=== PATIENT | male | born 1940 | race Caucasian/White ===

== ENCOUNTER 2020-10-16 14:01 | Inpatient (IN) | payer MEDICARE, BC ==
[2020-10-16] MEDS ORDERED: Iopamidol-370 76% 500 ML 1 ML ONE (14:06)
[2020-10-16] MEDS ORDERED: Piperacillin/Tazobactam 4.5 GM VIAL ONE (14:38)
[2020-10-16] MEDS ORDERED: Vancomycin 1 GM/200 ML BAG ONE (14:38)
--- NOTE | 2020-10-16 14:46 | RAD ---
XR Chest 1 View Portable HISTORY: Altered mental status COMPARISON: 10/03/2020 FINDINGS: Changes of median sternotomy are again seen. The aorta is tortuous. There is stable promine nce of the heart size. Calcified opacity in the right lower lung is again noted. Right-sided rib fractures are again seen . There is a patchy opacity in the right midlung. No pneumothoraces or large effusions are identified.
[2020-10-16 14:53] LABS: #Lymphocytes 0.5 thou/uL (1.20-3.40); #Monocytes 0.4 thou/uL (0.11-0.59); #Neutrophils 7.4 thou/uL (1.40-6.50); %Eosinophils 0.3 % (0.0-10.0); %Lymphocytes 5.9 % (21.0-51.0); %Monocytes 4.6 % (0.0-10.0); %Neutrophils 89.3 % (42.0-75.0); Hemoglobin 11.9 g/dL (14.0-18.0); Mean Corpuscular HGB CONC 33.2 g/dL (32.0-36.0); Mean Corpuscular Hemoglobin 33.4 pg (27.0-31.0); RBC Distribution Width 13.9 % (11.5-14.5); Red Blood Cell (RBC) Count 3.55 mill/uL (4.70-6.10); White Blood Cell (WBC) Count 8.3 thou/uL (4.8-10.8)
[2020-10-16 14:56] LABS: INR-International Normal Ratio 1.6; PTT 39.1 sec (22.9-36.1); Prothrombin Time 19.4 sec (12.0-14.7)
[2020-10-16 14:57] LABS: Mean Platelet Volume 8.6 fL (7.4-10.4); Platelet Count 84 thou/uL (130-400)
[2020-10-16 15:11] LABS: Bacteria/HPF 4+ HPF (None Seen); Bilirubin Negative (Negative); Blood, Urine Trace (Negative); Clarity Turbid (Clear); Glucose, Urine (Dipstick) Normal (Negative); Ketone, Urine Negative (Negative); Leukocyte 500 Leu/uL (Negative); MDiff Complete? YES; Nitrite Negative (Negative); Platelet Morphology Comment Appears Decreased; Polychromasia SLIGHT = 2-3 cells (100X) (0-2/hpf); Protein, Urine (Dipstick) 100 mg/dL (Neg-Trace); RBC/HPF 0-3 HPF (0-3); Specific Gravity, Urine 1.015 (1.002-1.036); Squamous Epithelial 0-3 HPF (0-3); Urobilinogen Normal mg/dL (Less than 2); pH, Urine 5.5 (5.0-9.0)
[2020-10-16 15:13] LABS: ALT (SGPT) 30 U/L (8-55); AST (SGOT) 52 U/L (5-34); Albumin 2.6 g/dL (3.4-4.8); Alkaline Phosphatase 110 U/L (40-110); Anion Gap 13 mmol/L (10-20); BUN (Urea Nitrogen) 37 mg/dL (8.4-25.7); Bilirubin, Total 1.1 mg/dL (0.2-1.2); Calc. Creatinine Clearance 0 mL/min (70-130); Calcium 7.9 mg/dL (7.8-10.44); Carbon Dioxide 28 mmol/L (23-31); Chloride 99 mmol/L (98-107); Globulin 2.1 g/dL (2.4-3.5); Glucose 122 mg/dL (83-110); Protein, Total 4.7 g/dL (5.8-8.1); Sodium 135 mmol/L (136-145)
--- NOTE | 2020-10-16 16:03 | CT ---
CT Cervical Spine WO Con Indication: Altered mental status; found unconscious on ground; concern for neck injury COMPARISON: None. FINDINGS: Spinal alignment: There is very slight anterior translation of C3 on C4. Craniocervical junction: Within normal limits. Fracture: None. There is healed fracture deformity involving the right third rib head. Vertebral body heights: Maintained. Prevertebral soft tissues:Normal appearing. Cervical spine degenerative change: There is moderate multilevel cervical spondylosis. There is ankyl osis of the left C3-C4 facet complex. Lung apices: There are bilateral pleural effusions, right greater than left. IMPRESSION: No acute osseous abnormality.
--- NOTE | 2020-10-16 16:03 | CT ---
CT BRAIN WITHOUT CONTRAST: HISTORY: Altered mental status FINDINGS: There are changes of cortical atrophy and chronic small vessel ischemic disease. No evidence of acute infarct, hemorrhage, midline shift or abnormal extra-axial fluid collections is seen. The ventricular size is appropriate and the basilar cisterns are patent. The bony calvarium is intact. Th ere is mucosal disease in the paranasal sinuses. IMPRESSION: No CT evidence of acute intracranial process.
[2020-10-16] MEDS ORDERED: Acetaminophen 650 MG Suppository PR PRN (16:18)
[2020-10-16] MEDS ORDERED: Acetaminophen 325 MG TAB PO PRN (16:18)
[2020-10-16 16:25] LABS: SARS-CoV-2 NAA Rapid Test Not Detected (NotDetected)
--- NOTE | 2020-10-16 16:29 | CT ---
CT Chest Abd Pelvis W Con CT thoracic spine with contrast CT lumbosacral spine with contrast History: Altered mental status. Unconscious Comparison: None. Findings: Moderate right layering pleural effusion. Large right lower lobe calcified granuloma. Small left pleural effusion. Numerous small splenic calcified granulomas. No pneumothorax. No significant pericardial effusion. Relatively large calcification along the right subhepatic space may be sequela of old torsed epiploic appendage adjacent to 7 cm size. No hydronephrosis. Multiple hypodensities of both kidneys. Mild third spacing of fluid. Thickened urinary bladder wall. Trace free fluid in the pelvis. No free intraperitoneal gas. Liver is unremarkable. Adrenal glands are unremarkable. CT thoracic spine: Intact CT lumbosacral spine: Burst fracture of L3 with retropulsion posterior superior endplate 3 mm. There is a coronal oriented fracture through the midportion the vertebral body which involves both the superior and inferior endplates. Spinal canal measures approximately 5 mm due to the retropulsed post erior superior L3 endplate. Fracture does extend into the anterior L2/L3 osteophyte. The L2 anterior osteophyte is fractured off the vertebral body. The obturator rings are intact. Sacrum is without fracture. Bridging bone along the superior right SI joint is a false appearance of a fracture. Prior midline sternotomy. Buckle fracture right anterior third rib. Nondisplaced fracture right third rib neck. Buckle fracture right anterior fourth rib. Minimally displaced fracture right lateral fourth rib. Non displaced fracture right fourth rib neck. Minimally displaced fracture right lateral fifth rib. Nondisplaced fracture right anterior fifth rib. Nondisplaced fracture right fifth rib neck. Nondisplaced fracture right lateral sixth rib. Minimally displaced fracture right posterior sixth rib . Fracture right sixth rib neck. Minimally impacted fracture right seventh rib neck. Minimally displaced fracture right lateral sevent h rib. Buckle fracture right anterior seventh rib. Fracture right eighth rib neck. One half shaft width displaced fracture right lateral eighth rib. Impacted fracture right ninth rib neck. Minimally displaced fracture right lateral ninth rib. Fracture right 10th rib head and neck. Fracture right 11th rib head and neck. Fracture posterior right 12th rib. Fracture of the left first costochondral junction. Buckle fracture left anterior second rib. Buckle f racture left anterior third rib. Buckle fracture left anterior fourth rib. Buckle fracture left anterior fifth rib. No left-sided rib head or neck fracture. No displaced left rib fracture. No pneumothorax. No acute aortic injury. Moderate third spacing of fluid Liver is unremarkable. Adrenal glands are unremarkable. High-grade narrowing SMA origin with adequate peripheral flow. Lumbar transverse processes are intact. Impression: 1. Fractures right 3rd through 12th ribs in different stages of healing, acute and subacute. 2. Fractures left first costochondral junction and 2nd-4th anterior rib buckle fractures. 3. Moderate-large right layering pleural effusion and small left pleural effusion. 4. No acute traumatic abnormality within the abdomen or pelvis. 5. Burst fracture L3 vertebral body with 3 mm retropulsion posterior superior endplate, 20% height lo ss, spinal canal narrowing to 5 mm, with fracture extending along the bridging anterior L2/L3 osteophyte. 6. Moderate third spacing of fluid. 7. Multiple renal cysts. 8. Evidence of prior granulomatous disease with 7 cm calcification right subhepatic space may be sequ elae of either prior hemorrhage or displaced epiploic appendage. ER physician notified of findings via telephone at 4:22 PM
[2020-10-16 17:49] LABS: Lactic Acid 1.9 mmol/L (0.5-2.2)
[2020-10-16] MEDS ORDERED: Sodium Chloride 0.9% 1,000 ML IV SCH (19:00)
--- NOTE | 2020-10-16 20:37 | HP ---
CHIEF COMPLAINT: Fall in the snow and obtunded. HISTORY OF PRESENT ILLNESS: An 79-year-old male with history of CHF, found down a couple of days ago in the snow in his backyard by his neighbors. He was brought inside his trailer home by the neighbors. But they did not follow up with him next day or call 911. Two days later, they went to see him and he was found on the floor. Then, they called EMS. On arrival, he was hypotensive, hypothermia with temperature of 75.7, and blood pressure of 70/36. Hypothermia protocol initiated in the ER and received IV fluid. During my exam, the patient is moving his extremities, but is quite somnolent. He is on a Wu Hugger. His blood pressure has slightly improved to 86/43. He has lot of ecchymosis on his legs, skin abrasions, and skin tear throughout his extremities. He is severely dehydrated. His BUN is 37 and creatinine 0.8. The screen for flu as well as COVID is negative. His UA showed 4+ bacteria. The patient will be admitted in the unit. REVIEW OF SYSTEMS: Not obtainable. MEDICATIONS: None. PAST MEDICAL HISTORY: The patient is not in the system. It appears that he has a history of CHF. I do not have the [facility] [employer] record. SOCIAL HISTORY: Not obtainable. PHYSICAL EXAMINATION: VITAL SIGNS: Again, his temperature is currently 84, and his blood pressure is 86/43, temperature is measured through probe in the Ngo. GENERAL: The patient is not able to follow any commands, but he is moving his extremities. He is on 4-point soft restraints. He is on a Wu Hugger. Extensive ecchymosis on his extremities and skin abrasions. He appears quite ill. He is protecting his airway. HEENT: Pupils are equal, round, and reactive to light. CARDIOVASCULAR: Regular rate and rhythm without murmurs, rubs, or gallops. LUNGS: With anterior auscultation have extensive crackles all over his lung zones. ABDOMEN: Soft, nontender, nondistended. Bowel sounds are positive. EXTREMITIES: Extensive ecchymosis and skin abrasions noted. NEUROLOGIC: Cannot be evaluated. LABORATORY DATA: His sodium 135, creatinine 0.8, BUN 37, potassium 5.0, chloride 99, bicarb 28. AST 52, ALT 30. Creatine kinase 1161. TSH in the normal range. Lactic acid 2.7. CBC with a hemoglobin 11.9, WBC 8.3, platelet 84,000. CT head is negative for acute intracranial abnormality. Cervical spine CT is negative for fracture and subluxation. Chest x-ray shows right middle lobe pneumonia. IMPRESSION AND PLAN: This is a 79-year-old male found down in his trailer home by the neighbors. Actual duration that he is found being unresponsive is unknown. He was brought in being hypothermic and hypotensive. 1. Systemic inflammatory response syndrome. 2. Hypovolemia. 3. Severe dehydration. 4. Thrombocytopenia. 5. Rhabdomyolysis. 6. Right middle lobe pneumonia. 7. Hypotension and hypothermia. The patient is critically ill. The ER staff tried to reach the family. There is a niece named Tiarra lives in [facility] and originally they were planning to take him to their home. I have requested the palliative consult to coordinate with the family members. Based on the conversation with Tiarra by ER physicians, the patient will be DNR. This has to be verified. Until then, continue with the medical management including hypothermia protocol, broad-spectrum antibiotic coverage, and IV fluid maintenance. Follow the clinical course. Job ID: [id number] MTDD
[2020-10-16] MEDS ORDERED: Phenylephrine 40 MG in Sodium Chloride 0.9% 250 ML 250 ML IVPB PRN (20:38)
[2020-10-16] MEDS ORDERED: Norepinephrine 8 MG/0.9% NS 250 ML IVPB PRN (20:38)
[2020-10-16] MEDS ORDERED: Norepinephrine 8 MG/0.9% NS 250 ML ONE (21:32)
[2020-10-17] MEDS: Famotidine/PF 20 mg/2ml Vial SLOW IVP SCH ×2 (03:21→09:55)
[2020-10-17] MEDS: Piperacillin/Tazobactam 3.375 GM in Sodium Chloride 0.9% 100 ML IVPB SCH ×3 (03:21→14:33)
[2020-10-17] MEDS ORDERED: Sodium Chloride 0.9% 500 ML IVPB SCH (05:00)
[2020-10-17 05:09] LABS: ALT (SGPT) 38 U/L (8-55); AST (SGOT) 94 U/L (5-34); Albumin 2.4 g/dL (3.4-4.8); Alkaline Phosphatase 98 U/L (40-110); Anion Gap 12 mmol/L (10-20); BUN (Urea Nitrogen) 39 mg/dL (8.4-25.7); Calc. Creatinine Clearance 65 mL/min (70-130); Calcium 7.7 mg/dL (7.8-10.44); Carbon Dioxide 24 mmol/L (23-31); Chloride 104 mmol/L (98-107); Glucose 60 mg/dL (83-110); Potassium 4.1 mmol/L (3.5-5.1); Protein, Total 4.4 g/dL (5.8-8.1); Sodium 136 mmol/L (136-145)
[2020-10-17 05:20] LABS: Band 9 % (5-11); Hemoglobin 10.5 g/dL (14.0-18.0); Hypochromia SLIGHT = 6-15 cells (100X) (0-5/hpf); Lymphocytes 3 % (21-51); MDiff Complete? YES; Mean Corpuscular HGB CONC 33.6 g/dL (32.0-36.0); Mean Corpuscular Hemoglobin 33.3 pg (27.0-31.0); Mean Platelet Volume 8.9 fL (7.4-10.4); Monocytes 4 % (0-10); Neutrophil 84 % (42-75); Platelet Count 114 thou/uL (130-400); Platelet Morphology Comment Appears Decreased; RBC Distribution Width 14.3 % (11.5-14.5); Red Blood Cell (RBC) Count 3.16 mill/uL (4.70-6.10); White Blood Cell (WBC) Count 9.9 thou/uL (4.8-10.8)
[2020-10-17] MEDS ORDERED: Dextrose 50% Abboject 50 ML SYRINGE ONE (06:49)
[2020-10-17] MEDS ORDERED: FLU VACC QS2020-21(65YR UP)/PF 240 MCG/0.7 ML SYRINGE IM ONE (09:00)
--- NOTE | 2020-10-17 11:44 | PDOC.FMACP ---
Advance Care Planning - Problem (1) SIRS (systemic inflammatory response syndrome) Status: Acute Code(s): R65.10 - SIRS OF NON-INFECTIOUS ORIGIN W/O ACUTE ORGAN DYSFUNCTION (2) Rhabdomyolysis Status: Acute Code(s): M62.82 - RHABDOMYOLYSIS (3) Pneumonia Status: Acute Code(s): J18.9 - PNEUMONIA, UNSPECIFIED ORGANISM (4) Hypotension Status: Acute (5) Palliative care encounter Status: Acute Code(s): Z51.5 - ENCOUNTER FOR PALLIATIVE CARE - Note Participants: surrogate decision-maker, palliative care, other (Case managment) Summary: Introduced Advanced Care Planning. The diagnosis, prognosis and goals of care were discussed. Appropriate forms and documentation to accomplish the goals of care were discussed. All questions were answered. Patient niece is MPOA, transitioned her uncle to DNAR Case management initially communicated and niece requested hospice evaluation Order placed, and [facility] to come evaluate patient Dr Landon communicated with. Time Spent (mins): 15
--- NOTE | 2020-10-17 11:48 | PDOC.PALFU ---
Palliative Care Follow-up Note Palliative care will sign off as Goal of care addressed If we can assist in the future please re consult our team. Thank you for this very appropriate consult
--- NOTE | 2020-10-17 12:42 | PDOC.HOSPP ---
- Subjective Encounter Date: 10/17/20 Encounter Time: 10:10 Subjective: Patient seen this morning. He is off the Bear hugger; he is normotensive respiratory rate around 28 he is afebrile and a temperature of 98.4. He is moving his extremities he is tracking for tactile stimulation; but he has extensive crackles and gurgling sounds. He also has respiratory distress. Palliative [facility] will be visiting him today - Objective Vital Signs & Weight: Vital Signs (12 hours) Pulse Ox 10/17/20 08:00 98 10/17/20 06:14 95 Weight Weight 167 lb 0.636 oz Most Recent Monitor Data Heart Rate from ECG 89 NIBP 111/46 NIBP BP-Mean 67 Respiration from ECG 22 SpO2 99 I&O: 10/16/20 10/17/20 10/18/20 06:59 06:59 06:59 Intake Total 592.2 1 Output Total 188 64 Balance 404.2 -63 Result Diagrams: 10/17/20 03:48 10/17/20 03:48 Additional Labs: Accuchecks 10/17/20 10/16/20 12:20 14:05 POC Glucose 69 L 118 H Hospitalist ROS - Medication Medications: Active Medications Generic Name Dose Route Start Last Admin Trade Name Freq PRN Reason Stop Dose Admin Famotidine 20 mg 10/16/20 21:00 10/17/20 09:55 Famotidine/Pf 20 Mg/2ml Vial SLOW IVP 20 mg Q12HR MAIRA Administration Piperacillin Sod/Tazobactam 100 mls @ 200 mls/hr 10/16/20 22:00 10/17/20 05:43 Sod 3.375 gm/ Sodium Chloride IVPB 100 mls Q8HR MAIRA Administration - Exam General Appearance: ill appearing Eye: PERRL ENT: normocephalic atraumatic Neck: supple Heart: irregular, murmur present Respiratory: tachypneic Gastrointestinal: soft, normal bowel sounds Skin - other findings: Extensive ecchymosis on the lateral side of the right leg and lot of skin a Neurological: no focal deficits Psychiatric: not oriented, somnolent, lethargic Hosp A/P - Plan SIRS Hypovolemia and severe dehydration Fall and on the ground for unknown amount of days Rhabdomyolysis Right middle lobe pneumonia Hypothermia He is off the Bear hugger; he is normotensive respiratory rate around 28 he is afebrile and a temperature of 98.4. He is moving his extremities he is tracking for tactile stimulation; but he has extensive crackles and gurgling sounds. He also has respiratory distress. Palliative [facility] will be visiting him today Poor prognosis
[2020-10-17 13:27] VITALS: BMI 23.9
--- NOTE | 2020-10-17 18:38 | CON ---
DATE OF CONSULTATION: 10/17/2020 HISTORY OF PRESENT ILLNESS: Carlito Ramirez is seen after admission to the critical care unit. He is afebrile. Heart rate is 81, respiratory rate 14, oximetry is 100%, blood pressure 96/53. Apparently, he has been developing dementia. Apparently, he was found down in the snow over the weekend and has frostbite on his toes and skin tears. He is admitted with an altered mental status, unable to protect his airway. He apparently has do not resuscitate status. PAST MEDICAL HISTORY: Remarkable for cardiomyopathy. FAMILY HISTORY: Unknown. I have been told he has family in the [place], who was planning to come get him in the next couple of days and take him to [place]. They realized he was unable to take care of himself. REVIEW OF SYSTEMS: A 10-point review of systems not obtainable. PHYSICAL EXAMINATION: HEENT: Pupils are reactive. Sclerae anicteric. He appears much older than his age. He has temporal muscle wasting. He has no cervical lymphadenopathy. He is quite cachectic. LUNGS: Remarkable for rhonchi secondary to his inability to clear secretions. HEART: Regular rhythm. ABDOMEN: Soft. EXTREMITIES: Without clubbing, cyanosis, or edema. Moves all extremities. LABORATORY DATA: White count 9.9, hemoglobin 10.5, platelets 114. Electrolytes surprisingly were unremarkable. BUN is 39, creatinine 0.97. If he had normal renal function, I was expect his creatinine will be about 0.5 since he has no muscle mass. He had a CPK of 1840. Albumin is 2.4. Urinalysis with 100 mg/dL of protein. IMPRESSION: Failure to thrive. I do not feel he will survive this. Chest x- ray shows an alveolar infiltrate in his right lung consistent with pneumonia. He is weaned off his Levophed today in the critical care unit, will be transferred out for supportive care. A CT done in the ER that showed multiple rib fractures, which may be related to his fall when he was found down in snow. I told he had a temperature of less than 80 degrees when he arrived. He has very little that can be done except comfort . This is a 70 min consult with greater than 50% of time spent on unit with coordination of care. Job ID: [id number] [facility]
[2020-10-17 19:19] VITALS: BP 147/71; TEMP 97.7
--- NOTE | 2020-10-18 11:23 | PDOC.DS.DS ---
Provider - Provider Date of Admission: 10/16/20 16:11 Admitting Provider: Mindi Landon MD Primary Care Physician: Unknown Course - Hospital Course Hospital Course: SIRS Hypovolemia and severe dehydration Fall and on the ground for unknown amount of days Rhabdomyolysis Right middle lobe pneumonia Hypothermia He is off the Bear hugger; he is normotensive respiratory rate around 28 he is afebrile and a temperature of 98.4. He is moving his extremities he is tracking for tactile stimulation; but he has extensive crackles and gurgling sounds. He also has respiratory distress. [facility] will be visiting him today Poor prognosis transferred to hospice. Resuscitation Status: 10/16/20 20:00 Resuscitation Status Routine Resuscitation Status: DNAR: NO Resuscitation Discussed with: nursing, patient - Labs Lab Results: 10/17/20 03:48 10/17/20 03:48 Abnormal Lab Results - Last 48 hrs 10/16/20 14:28: Lactic Acid 2.7 H 10/16/20 14:28: RBC 3.55 L, Hgb 11.9 L, Hct 35.7 L, MCV 101.0 H, MCH 33.4 H, Plt Count 84 L, Neutrophils % 89.3 H, Lymphocytes % 5.9 L, Neutrophils # 7.4 H, Lymphocytes # 0.5 L, Plt Morphology Comment Appears Decreased L 10/16/20 14:28: Sodium 135 L, BUN 37 H, AST 52 H, Serum Total Protein 4.7 L, Albumin 2.6 L, Globulin 2.1 L 10/16/20 14:28: PT 19.4 H, APTT 39.1 H 10/16/20 14:28: Urine Clarity Turbid A, Urine Protein 100 A, Urine Blood Trace A, Ur Leukocyte Esterase 500 A, Urine WBC 4-6 A, Urine Bacteria 4+ A 10/16/20 16:32: Creatine Kinase 1161 H 10/17/20 00:35: Creatine Kinase 1840 H 10/17/20 03:48: BUN 39 H, Calcium 7.7 L, AST 94 H, Serum Total Protein 4.4 L, Albumin 2.4 L, Globulin 2.0 L 10/17/20 03:48: RBC 3.16 L, Hgb 10.5 L, Hct 31.3 L, MCV 99.0 H, MCH 33.3 H, Plt Count 114 L, Neutrophils % (Manual) 84 H, Lymphocytes % (Manual) 3 L, Plt Morphology Comment Appears Decreased L 10/17/20 08:39: Creatine Kinase 1245 H 10/17/20 17:23: Creatine Kinase 918 H Microbiology - Entire Visit 10/16/20 14:28 Venous blood - Left Hand Blood Culture - Preliminary Alpha-Hemolytic Streptococcus 10/16/20 14:28 Urine escobar catheter Urine Culture - Preliminary Morganella morganii ssp gissell 10/16/20 14:28 Venous blood - Right Arm Blood Culture - Preliminary Specimen has been received and culture in progress. No Growth to date. - Physical Exam Vitals: Weight Admit Weight 167 lb Weight 167 lb 0.636 oz Most Recent Monitor Data Heart Rate from ECG 76 NIBP 93/46 NIBP BP-Mean 61 Respiration from ECG 21 SpO2 97 Physical Exam: The patient was seen and examined on the day of discharge. Plan - Discharge Medications Allergies: morphine Allergy (Unverified 10/16/20 17:12) - Follow up Plan Referrals: Unknown,Unknown [Primary Care Provider] - Disposition: HOSPICE MEDICAL FACILITY Quality - Care Measures CORE MEASURES:: N/A
--- NOTE | 2020-10-18 11:28 | PQF ---
CLINICAL DOCUMENTATION CLARIFICATION FORM: Dear Dr. Landon Date: 10/18/2020 Please exercise your independent, professional judgment in responding to the clarification form. Clinical indicators are provided on the bottom of this form for your review. Please check appropriate box(es): [x ] Aspiration Pneumonia [ ] Empirically treating Gram Negative Pneumonia [ ] Empirically treating Anaerobic Pneumonia [ ] Pneumonia secondary to (specify organism / underlying disease) [ ] Simple Pneumonia [ ] Pneumonia of unknown etiology [ ] Other diagnosis [ ] Unable to determine In addition, please specify: Present on Admission (POA): [ ] Yes [ ] No [ ] Unable to determine For continuity of documentation, please document condition throughout progress notes and discharge summary. Thank You. To be completed by CDI/Coding staff for physician review: CLINICAL INDICATORS - SIGNS / SYMPTOMS / LABS / RESULTS AND LOCATION IN *&P 10/16 ([facility]) HPI: On arrival, he was hypotensive, hypothermia with temp. 75.7 and BP 70/36. Lab data: Lactic acid 2.7 WBC 8.3 Chest x-ray shows right middle lobe pneumonia *10/17 pn (Barbi): A/P: SIRS Right middle lobe pneumonia Hypothermia. He is normotensive respiratory rate around 28 he is afebrile and temp. 98.4. He has extensive crackles and gurgling sounds. He also has respiratory distress. *10/17 Consult (Homero) HPI: He is admitted with an altered mental status, unable to protect his airway. PE: LUNGS: Remarkable for rhonchi 2/2 his inability to clear secretions. Impression. Failure to thrive. Chest x-ray shows an alveolar infiltrate in his r lung consistent with pneumonia. RISK FACTORS / RESULTS AND LOCATION IN *&P 10/16 ([facility]): HPI: 79 yo with hx of CHF, found down a couple of days ago in the snow by his neighbors. I/P: Systemic inflammatory response syndrome. Hypovolemia. Severe dehydration. Thrombocytopenia. Rhabdomyolysis. RML pneumonia. Hypotension and hypothermia. *10/17 Consult (Homero) HPI: Apparently, he has been developing dementia. TREATMENTS / RESULTS AND LOCATION IN *&P 10/16 ([facility]): HPI: Hypothermia protocol initiated in the ER and received IV fluid. I/P: continue with medical management including hypothermia protocol, broad- spectrum antibiotic coverage, and IV fluid maintenance. Order 10/16-10/17: Zosyn 3.375 gm IV q8 hr Thank you, Tiff Bragg RN, BSN [email or web address] Cell This is a permanent part of the Medical Record [facility]
--- NOTE | 2020-10-18 12:57 | PQF ---
CLINICAL DOCUMENTATION CLARIFICATION FORM: Dear Dr. Landon Date: 10/18/2020 Please exercise your independent, professional judgment in responding to the clarification form. Clinical indicators are provided on the bottom of this form for your review. Please check appropriate box(s): [ x ] Hypovolemic Shock [ ] Shock Unspecified [ ] Shock due to other: [ ] Other diagnosis [ ] Unable to determine In addition, please specify: Present on Admission (POA): [ x ] Yes [ ] No [ ] Unable to determine For continuity of documentation, please document condition throughout progress notes and discharge summary. Thank You. To be completed by CDI/Coding staff for physician review: CLINICAL INDICATORS - SIGNS / SYMPTOMS / LABS / RESULTS AND LOCATION IN MR *H&P 10/16 ([facility]) HPI: On arrival, he was hypotensive, hypothermia with temp. 75.7 and BP 70/36. During exam, pt is moving his extremities, but is quite somnolent. He has lot of ecchymosis on his legs, skin abrasions, and skin tear throughout his extremities. Lab data: Lactic acid 2.7 A/P: Systemic inflammatory response syndrome. Hypovolemia. Severe dehydration. Thrombocytopenia. Rhabdomyolysis. R middle lobe pneumonia. Hypotension and hypothermia. *10/17 pn ([facility]) VS: NIBP 111/46 BP-Mean 67 A/P: SIRS Hypovolemia and severe dehydration. Fall and in the ground for unknown amount of days RML pneumonia Hypothermia *VS ([facility]): 10/17/2020 @ 0100: BP 87/43 MAP 57 @ 0116 BP 92/45 MAP 60 @ 0145 BP 88/43 MAP 58 @ 0215 BP 89/67 MAP 74 RISK FACTORS / RESULTS AND LOCATION IN MR H&P 10/16 ([facility]): HPI: 79 yo with hx of CHF, found down a couple of days ago in the snow by his neighbors. I/P: Systemic inflammatory response syndrome. Hypovolemia. Severe dehydration. Thrombocytopenia. Rhabdomyolysis. RML pneumonia. Hypotension and hypothermia. TREATMENTS / RESULTS AND LOCATION IN MR *Order 10/16-10/17: Levophed 250 ml IVPB prn to maintain MAP > 65 *Order 10/16-10/17: Zosyn 3.375 gm IV q 8hr *10/17 pn (Barbi) Sub: He is off the Bear hugger. *10/17 Consult (Homero) Impression: He is weaned off his Levophed today in the critical care unit, will be Transferred out for supportive care. Thank you, Tiff Bragg, RN, BSN [email or web address] This is a permanent part of the Medical Record [facility]
--- NOTE | 2020-10-18 18:52 | HP ---
History and Physical/Hospice Note CHIEF COMPLAINT: Hospice care due to hypoxia and CHF. HISTORY OF PRESENT ILLNESS: Mr. Ramirez is an 79-year-old male with past medical history of coronary artery disease and CHF, who presented to the ER with hypothermia. History obtained through records. He is in bed, nonresponsive. Niece is in the room. Neighbors found him down in the snow and took him back to his home. They checked on him 2 days later and he was on the floor. EMS was activated and he was sent to the ER. In the ER, he was hypothermic with a temperature of 75.7 degrees and hypotensive with a blood pressure of 70/36. He received IV fluids. Hypothermia protocol was initiated. ICU care. Need for levophed. Condition did not improve. He was diagnosed with rhabdomyolysis, failure to thrive, right middle lobe pneumonia, hypothermia, dehydration, rib fractures. Since there is no significant recovery, family contacted and hospice initiated. Comfort measures have been taken. He is comfortable. Ngo is in place. PAST MEDICAL HISTORY: Includes cardiomyopathy and coronary artery disease. PAST SURGICAL HISTORY: Includes CABG, cardiac stent, and eye surgery. ALLERGIES: MORPHINE. FAMILY HISTORY: Noncontributory. MEDICATIONS: On chart, reviewed. VITAL SIGNS: On chart, reviewed. OBJECTIVE: HEENT: Normocephalic, atraumatic. Oral mucosa moist. LUNGS: Coarse breath sounds bilaterally. Rhonchi greatest involving right mid lung field. HEART: Regular rate and rhythm. ABDOMEN: Soft. Hypoactive bowel sounds. Nondistended. EXTREMITIES: No edema. Dressings in place, right lower extremity. Ecchymosis present. PSYCH: Nonverbal. Not responsive. ASSESSMENT AND PLAN: An 79-year-old male with past medical history of coronary artery disease and congestive heart failure, who presented with hypothermia. Diagnosed with primarily cardiomyopathy, right middle lobe pneumonia, failure to thrive, rhabdomyolysis, hypothermia, dehydration and rib fractures. No significant improvement with initial measures. Family opted for hospice. Need for inpatient hospice due to nursing care and IV medications. He is terminal. I Will follow along with hospice. Job ID: [id number]
--- NOTE | 2020-10-18 23:33 | PQF ---
CLINICAL DOCUMENTATION CLARIFICATION FORM: Dear : Mindi Meneses Date / Time: 10/18/20 2974 Please exercise your independent, professional judgment in responding to the clarification form. Clinical indicators are provided on the bottom of this form for your review Please check appropriate box(es): [ ] Sepsis due to Aspiration Pneumonia [ ] Localized infection without sepsis [ x ] Other diagnosis ___SIRS [ ] Unable to determine In addition, please specify: Present on Admission (POA): [ ] Yes [ ] No [ ] Unable to determine Physician Signature: Date/Time: For continuity of documentation, please document condition throughout progress notes and discharge summary. Thank You. To be completed by CDI/Coding staff for physician review: Present Clinical Indicators - Signs / Symptoms / Labs Results and Location in Medical Record [x] WBC 8.3, Plt count 84, Neutrophils 89.3, Band 9, Lactic acid 2.7 Laboratory 10/16 [x] Blood culture: Alpha-Hemolytic Streptococcus Microbiology 10/16 [x] Chest X-ray: Calcified opacity in the [facility] Dr Zuniga 10/16 [x] BP 70/36, Pulse 42, Resp 14, Temp 78.4 Vital signs 10/16 [x] SIRS Scoring: Pt did meet criteria ED notes p2 10/16 [x] He was hypotensive, hypothermia with temp of 75.7 and BP of 70/36 H&P p1 10/16 Dr meneses [x] SIRS H&P p2 10/16 Dr meneses [x] Right middle lobe pneumonia H&P p2 10/16 Dr meneses [x] Aspiration pneumonia Physician Documentation 10/18 DR meneses Present Risk Factors Results and Location in Medical Record [x] 79 year-old Male H&P p1 10/16 Dr meneses [x] Dehydration H&P p2 10/16 Dr meneses [x] Right middle lobe pneumonia H&P p2 10/16 Dr meneses Present Treatments Results and Location in Medical Record [x] IV Vancomycin 1 gm DEC 02 [x] IV Zosyn 3.375 gm DEC 02 [x] IV Levophed 250ml DEC 02 [x] Sepsis protocol ED notes p2 10/16 [x] Respiratory consult Consult Dr Valentin 10/17 CDS/Outcomes Analyst Signature: Maria Luisa Ding Phone #: [phone] Date/Time: 10/18/20 9928 This is a permanent part of the Medical Record [facility], [place]
--- NOTE | 2020-10-19 17:17 | PRG ---
DATE OF SERVICE: 10/19/2020 SUBJECTIVE: Niece is in the room. He is nonresponsive. Niece reports that he was briefly alert. Nodded. Still no oral intake. Ngo remains in place. He remains comfortable. OBJECTIVE: VITAL SIGNS: Routine vitals not on chart due to hospice care. HEENT: Normocephalic and atraumatic. Oral mucosa is dry. LUNGS: Coarse breath sounds bilaterally. Worse on the right side. HEART: Regular rate and rhythm. ABDOMEN: Soft and nondistended. Hypoactive bowel sounds. EXTREMITIES: No edema. : Ngo. PSYCH: Not responsive. ASSESSMENT AND PLAN: An 79-year-old man who was found down. He was hypothermic and hypotensive. Diagnosed with systemic inflammatory response syndrome. Cardiomyopathy, right middle lobe pneumonia, failure to thrive, rhabdomyolysis, hypothermia, dehydration, and rib fractures. Initial measures were not effective. Family opted for hospice. He is comfortable. We will continue comfort measures. Condition is terminal. Job ID: [id number]
--- NOTE | 2020-10-20 09:19 | PRG ---
DATE OF SERVICE: 10/20/2020 SUBJECTIVE: He remains nonresponsive and nonverbal. He is comfortable. No family at bedside. Nurse at bedside. He was alert for a few minutes yesterday, but nothing since. OBJECTIVE: VITAL SIGNS: Reviewed. HEENT: Normocephalic and atraumatic. Oral mucosa dry. LUNGS: Coarse breath sounds bilaterally, worse on the right side. HEART: Regular rate and rhythm. ABDOMEN: Soft and nondistended. Hypoactive bowel sounds. EXTREMITIES: No edema. : Ngo in place. ASSESSMENT AND PLAN: An 79-year-old male, presented with hypothermia and hypotension. Diagnosed with systemic inflammatory response syndrome, cardiomyopathy, right middle lobe pneumonia, failure to thrive, rhabdomyolysis, hypothermia, dehydration, and rib fractures. Initial measures, treatment with antibiotics, and supportive care have been not successful. Family opted for hospice. He is comfortable. Inpatient hospice needed due to nursing care and IV medication need. Prognosis remains terminal. Job ID: [id number]
== END 2020-10-17 19:56 | disposition hospice, inpatient (51) | DRG 177 ==
LOC: ERS 14:01 → ERHOLD 16:11 → CCU 10-17 00:19 → SURG A 10-17 16:56
PROVIDERS: ADMIT Internal Medicine; ATTEND Internal Medicine
PROC: 3E033XZ Introduction of Vasopressor into Peripheral Vein, Percutaneous Approach (ICD-10-PCS; principal; 2020-10-16)
PROC: 0T9B70Z Drainage of Bladder with Drainage Device, Via Natural or Artificial Opening (ICD-10-PCS; 2020-10-16)
PROC: 06HY33Z Insertion of Infusion Device into Lower Vein, Percutaneous Approach (ICD-10-PCS; 2020-10-16)
DX: J69.0 Pneumonitis due to inhalation of food and vomit (principal); R57.1 Hypovolemic shock; S22.41XA Multiple fractures of ribs, right side, initial encounter for closed fracture; N30.00 Acute cystitis without hematuria; M62.82 Rhabdomyolysis; I42.9 Cardiomyopathy, unspecified; Z66 Do not resuscitate; Z51.5 Encounter for palliative care; Z20.822 Contact with and (suspected) exposure to COVID-19; I50.9 Heart failure, unspecified; E86.0 Dehydration; D69.6 Thrombocytopenia, unspecified; R62.7 Adult failure to thrive; W19.XXXA Unspecified fall, initial encounter; Z78.1 Physical restraint status; Z68.24 Body mass index [BMI] 24.0-24.9, adult; Z79.899 Other long term (current) drug therapy
CPT/HCPCS: 0240U; 36415; 36416; 36556; 51702; 70450; 71045; 71260; 72125; 74177; 80053; 81003; 81015; 82550; 83605; 84443; 84484; 85025; 85610; 85730; 87040; 87077; 87086; 87149; 87186; 93005; 96365; 96367; J2543; J3370; J3490; J7030; Q9967; S0028

== ENCOUNTER 2020-10-17 19:59 | Inpatient (IN) | payer OTHER ==
[2020-10-17] MEDS ORDERED: Ondansetron PF 4 MG/2 ML Vial IVP PRN (20:45)
[2020-10-17] MEDS ORDERED: Acetaminophen 650 MG Suppository PR PRN (20:45)
[2020-10-17] MEDS: Scopolamine 1.5 mg/72 hour Patch TOP SCH (21:06)
[2020-10-17] MEDS: Lorazepam 2 MG/ML VIAL SLOW IVP SCH (21:06)
[2020-10-18] MEDS: Lorazepam 2 MG/ML VIAL SLOW IVP SCH ×8 (01:13→23:33)
[2020-10-19] MEDS: Lorazepam 2 MG/ML VIAL SLOW IVP SCH ×5 (03:11→19:53)
[2020-10-20] MEDS: Lorazepam 2 MG/ML VIAL SLOW IVP SCH ×4 (00:15→23:50)
[2020-10-20] MEDS ORDERED: Lorazepam 2 MG/ML VIAL SLOW IVP SCH ×2 (12:00→15:00)
[2020-10-20] MEDS: Scopolamine 1.5 mg/72 hour Patch TOP SCH (23:49)
[2020-10-21] MEDS: Lorazepam 2 MG/ML VIAL SLOW IVP SCH ×3 (08:38→23:00)
[2020-10-22] MEDS: Lorazepam 2 MG/ML VIAL SLOW IVP SCH ×2 (08:12→15:48)
[2020-10-22] MEDS ORDERED: Lorazepam 1 MG TAB PO PRN (19:38)
[2020-10-22] MEDS: Lorazepam 1 MG TAB PO SCH (22:15)
[2020-10-23] MEDS: Lorazepam 1 MG TAB PO SCH ×3 (06:08→21:32)
[2020-10-23] MEDS: Scopolamine 1.5 mg/72 hour Patch TOP SCH (19:58)
[2020-10-24] MEDS: Lorazepam 1 MG TAB PO SCH ×3 (05:16→21:15)
[2020-10-24 20:20] VITALS: BP 111/67; TEMP 98
[2020-10-25] MEDS: Lorazepam 1 MG TAB PO SCH (05:27)
--- NOTE | 2020-10-28 14:12 | DIS ---
DATE OF ADMISSION: 10/17/2020 DATE OF DISCHARGE: 10/25/2020 DATE OF : 10/25/2020 at 0819 hours. CAUSE OF : Asystole secondary to cardiac arrhythmia due to complications of acute on chronic congestive heart failure with recent altered mental status and pneumonia. BRIEF SUMMARY, HISTORY, PHYSICAL AND HOSPITAL COURSE: The patient is an unfortunate white male, who had a ground level fall of unknown time, was found to be in rhabdomyolysis with hypothermia, hypovolemia, and severe dehydration, was admitted to [facility] on 10/16/2020. The patient was placed on a Wu Hugger, was given IV fluids, was treated for pneumonia with IV antibiotics and treatment for his metabolic disorder. The patient continued to have significant altered mental status. He did not actually improve during his hospital course with aggressive measures and after consultation with the family, it was determined due to patient's historic wishes that he would be made comfort care only and not have further aggressive intervention and thus the patient was admitted to inpatient hospice on 10/17/2020. The patient was given IV morphine for air hunger and restlessness as well as Ativan for terminal restlessness as well as patient on O2 per nasal cannula for comfort measures and given scopolamine patch as needed for control of secretions. During his hospice care, the patient was unresponsive. He had no significant p.o. intake but was made comfortable with aggressive measures. The patient was found on the morning of 10/25/2020 at 0815 hours without respirations, no pulse was noted. The patient was unresponsive and he was pronounced at 0819 hours. The body was released to home per family wishes. Family was notified and given support as appropriate. Job ID: [id number]
== END 2020-10-25 10:35 | disposition expired | DRG 951 ==
LOC: SURG A 19:59
PROVIDERS: ADMIT Family Medicine; ATTEND Family Medicine
DX: Z51.5 Encounter for palliative care (principal); I50.33 Acute on chronic diastolic (congestive) heart failure; J18.9 Pneumonia, unspecified organism; M62.82 Rhabdomyolysis; I42.9 Cardiomyopathy, unspecified; E86.1 Hypovolemia; I25.10 Atherosclerotic heart disease of native coronary artery without angina pectoris; R62.7 Adult failure to thrive; W18.30XA Fall on same level, unspecified, initial encounter; E86.0 Dehydration; Z95.1 Presence of aortocoronary bypass graft; Z95.5 Presence of coronary angioplasty implant and graft; Z88.6 Allergy status to analgesic agent; Z74.01 Bed confinement status
CPT/HCPCS: 94640; J2060; J7620